=== PATIENT | male | born 1945 | race Caucasian/White ===

== ENCOUNTER 2018-04-29 18:39 | Outpatient (REF) | payer MEDICARE, SELFPAY ==
[2018-04-29 21:08] LABS: Anion Gap 7.8 mmol/L (3-11); BUN 16 mg/dL (7-18); CO2 30.2 mmol/L (21.0-32.0); CREATININE 0.84 mg/dL (0.70-1.30); Calcium 8.9 mg/dL (8.5-10.1); Chloride 95 mmol/L (98-107); Cholesterol 124 mg/dL (50-200); Glucose 97 mg/dL (70-100); HDL Cholesterol 46 mg/dL (40-60); LDL CHOLESTEROL 77 mg/dL (<100); Potassium 3.7 mmol/L (3.5-5.1); Sodium 133 mmol/L (136-145); Triglyceride 59 mg/dL (30-150)
== END 2018-04-29 18:59 ==
LOC: NCHCN 18:39
PROVIDERS: Visit Provider Nurse Practitioner
DX: I10 Essential (primary) hypertension (principal)
CPT/HCPCS: 80048; 80061; 83721

== ENCOUNTER 2019-01-05 11:13 | Outpatient (REF) | payer MEDICARE, SELFPAY ==
[2019-01-05 12:56] LABS: Anion Gap 8.5 mmol/L (3-11); BUN 16 mg/dL (7-18); CO2 30.5 mmol/L (21.0-32.0); CREATININE 0.83 mg/dL (0.70-1.30); Chloride 96 mmol/L (98-107); Glucose 100 mg/dL (70-100); Sodium 135 mmol/L (136-145)
== END 2019-01-05 11:33 ==
LOC: NCHCN 11:13
PROVIDERS: PCP Nurse Practitioner Family; Visit Provider Nurse Practitioner Family
DX: I10 Essential (primary) hypertension (principal)
CPT/HCPCS: 80048

== ENCOUNTER 2021-06-18 11:04 | Outpatient (REF) | payer MEDICARE, SELFPAY ==
[2021-06-18 14:34] LABS: ALT 30 U/L (16-63); AST 12 U/L (15-37); Anion Gap 9.8 mmol/L (3-11); BUN 18 mg/dL (7-18); CO2 30.2 mmol/L (21.0-32.0); CREATININE 0.8 mg/dL (0.70-1.30); Calcium 9.1 mg/dL (8.5-10.1); Calculated LDL 75 mg/dL (<100); Chloride 97 mmol/L (98-107); Cholesterol 130 mg/dL (<200); Glucose 97 mg/dL (74-106); HDL Cholesterol 44 mg/dL (40-60); Potassium 3.8 mmol/L (3.5-5.1); Sodium 137 mmol/L (136-145); Triglyceride 56 mg/dL (<150)
== END 2021-06-18 11:05 | disposition home or self-care (01) ==
LOC: NCHCN 11:04
PROVIDERS: PCP Nurse Practitioner Family; Visit Provider Nurse Practitioner Family
DX: E66.9 Obesity, unspecified (principal); I10 Essential (primary) hypertension
CPT/HCPCS: 80048; 80061; 84450; 84460

== ENCOUNTER 2022-05-15 16:40 | Outpatient (REF) | payer MEDICARE, SELFPAY ==
[2022-05-15 15:58] LABS: HCT 43.6 % (40.0-50.0); HGB 15.1 g/dL (13.5-17.5); MCH 30.9 pg (27.0-33.0); MCHC 34.6 % (32.0-36.0); MCV 89 fL (80-95); MPV 9.6 fL (8.0-11.0); Platelet Count 346 10^3/uL (130-400); RBC 4.88 10^6/uL (4.36-5.78); RDW 12.4 % (11.8-14.1); RDW-SD 40.8 fL; WBC 8.71 10^3/uL (4.4-10.8)
[2022-05-15 16:19] LABS: ALT 26 U/L (16-63); AST 13 U/L (15-37); Albumin 4.1 g/dL (3.4-5.0); Alkaline Phosphatase 70 U/L (46-116); Anion Gap 9.7 mmol/L (3-11); BUN 18 mg/dL (7-18); Bilirubin, Total 0.8 mg/dL (0.2-1.0); CO2 29.3 mmol/L (21.0-32.0); CREATININE 0.8 mg/dL (0.70-1.30); Calcium 9.4 mg/dL (8.5-10.1); Calculated LDL 84 mg/dL (<100); Chloride 99 mmol/L (98-107); Cholesterol 143 mg/dL (<200); Estimated GFR 92.87 (mL/min/1.73m2); Glucose 105 mg/dL (74-106); HDL Cholesterol 49 mg/dL (40-60); Potassium 4.7 mmol/L (3.5-5.1); Sodium 138 mmol/L (136-145); Triglyceride 50 mg/dL (<150)
== END 2022-05-15 16:41 | disposition home or self-care (01) ==
LOC: NCHCN 16:40
PROVIDERS: PCP Nurse Practitioner Family; Visit Provider Nurse Practitioner Family
DX: I10 Essential (primary) hypertension (principal)
CPT/HCPCS: 80053; 80061; 85027

== ENCOUNTER 2023-05-15 21:09 | Outpatient (REF) | payer MEDICARE, SELFPAY ==
[2023-05-15 19:31] LABS: Abs Immature Grans 0.03 10^3/uL (0.0-0.06); Absolute Basophil Count 0.05 10^3/uL (0.0-0.2); Absolute Eosinophil Count 0.33 10^3/uL (0.0-0.7); Absolute Lymphocyte Count 1.85 10^3/uL (1.2-3.4); Absolute Monocyte Count 0.56 10^3/uL (0.1-0.8); Absolute Neutrophil Count 5.28 10^3/uL (1.2-6.7); Basophils % 0.6; Eosinophils % 4.1; HCT 44.2 % (40.0-50.0); HGB 14.8 g/dL (13.5-17.5); Immature Grans % 0.4; Lymphocytes % 22.8; MCH 29.9 pg (27.0-33.0); MCHC 33.5 % (32.0-36.0); MCV 89 fL (80-95); MPV 9.3 fL (8.0-11.0); Monocytes % 6.9; Neutrophils % 65.2; Platelet Count 362 10^3/uL (130-400); RBC 4.95 10^6/uL (4.36-5.78); RDW 12.6 % (11.8-14.1); RDW-SD 41.4 fL
[2023-05-15 19:50] LABS: ALT 31 U/L (16-63); AST 14 U/L (15-37); Albumin 4.2 g/dL (3.4-5.0); Alkaline Phosphatase 71 U/L (46-116); Anion Gap 9.7 mmol/L (3-11); BUN 24 mg/dL (7-18); Bilirubin, Total 0.9 mg/dL (0.2-1.0); CO2 28.3 mmol/L (21.0-32.0); Calcium 9.8 mg/dL (8.5-10.1); Calculated LDL 85 mg/dL (<100); Chloride 93 mmol/L (98-107); Cholesterol 149 mg/dL (<200); Estimated GFR 78.49 (mL/min/1.73m2); Glucose 119 mg/dL (74-106); HDL Cholesterol 50 mg/dL (40-60); Potassium 4.4 mmol/L (3.5-5.1); Sodium 131 mmol/L (136-145); Total Protein 8.2 g/dL (6.4-8.2); Triglyceride 72 mg/dL (<150)
== END 2023-05-15 21:10 | disposition home or self-care (01) ==
LOC: NCHCN 21:09
PROVIDERS: PCP Nurse Practitioner Family; Visit Provider Nurse Practitioner Family
DX: I10 Essential (primary) hypertension (principal); E66.9 Obesity, unspecified
CPT/HCPCS: 80053; 80061; 85025

== ENCOUNTER 2024-06-02 17:54 | Outpatient (REF) | payer MEDICARE, SELFPAY ==
[2024-06-02 16:43] LABS: HCT 42.1 % (40.0-50.0); HGB 14.2 g/dL (13.5-17.5); MCH 30.7 pg (27.0-33.0); MCHC 33.7 % (32.0-36.0); MCV 91 fL (80-95); MPV 9.5 fL (8.0-11.0); Platelet Count 323 10^3/uL (130-400); RBC 4.63 10^6/uL (4.36-5.78); RDW 12.4 % (11.8-14.1); RDW-SD 41.2 fL; WBC 8.33 10^3/uL (4.4-10.8)
[2024-06-02 17:15] LABS: Hemoglobin A1C 5.9 % (<5.7)
[2024-06-02 17:36] LABS: ALT 28 U/L (16-63); AST 18 U/L (15-37); Alkaline Phosphatase 65 U/L (46-116); Anion Gap 9.9 mmol/L (3-11); BUN 15 mg/dL (7-18); Bilirubin, Total 0.76 mg/dL (0.2-1.0); CO2 28.1 mmol/L (21.0-32.0); CREATININE 0.9 mg/dL (0.70-1.30); Calcium 9.3 mg/dL (8.5-10.1); Calculated LDL 69 mg/dL (<100); Chloride 101 mmol/L (98-107); Cholesterol 129 mg/dL (<200); Estimated GFR 88.51 (mL/min/1.73m2); Glucose 95 mg/dL (74-106); HDL Cholesterol 46 mg/dL (40-60); Potassium 4.2 mmol/L (3.5-5.1); Sodium 139 mmol/L (136-145); Total Protein 7.6 g/dL (6.4-8.2); Triglyceride 72 mg/dL (<150)
== END 2024-06-02 17:55 | disposition home or self-care (01) ==
LOC: NCHCN 17:54
PROVIDERS: PCP Nurse Practitioner Family; Visit Provider Nurse Practitioner Family
DX: I10 Essential (primary) hypertension (principal)
CPT/HCPCS: 80053; 80061; 85027; 83036

== ENCOUNTER 2025-06-08 08:35 | Outpatient (REF) | payer MEDICARE, SELFPAY ==
[2025-06-08 14:41] LABS: HCT 40.4 % (40.0-50.0); HGB 13.9 g/dL (13.5-17.5); MCH 30.2 pg (27.0-33.0); MCHC 34.4 % (32.0-36.0); MCV 88 fL (80-95); MPV 9.0 fL (8.0-11.0); Platelet Count 384 10^3/uL (130-400); RBC 4.60 10^6/uL (4.36-5.78); RDW 12.2 % (11.8-14.1); RDW-SD 39.2 fL; WBC 8.46 10^3/uL (4.4-10.8)
[2025-06-08 15:26] LABS: ALT 24 U/L (16-63); AST 12 U/L (15-37); Albumin 3.9 g/dL (3.4-5.0); Alkaline Phosphatase 70 U/L (46-116); Anion Gap 10.4 mmol/L (3-11); BUN 31 mg/dL (7-18); Bilirubin, Total 0.7 mg/dL (0.2-1.0); CO2 27.6 mmol/L (21.0-32.0); Calcium 9.1 mg/dL (8.5-10.1); Chloride 94 mmol/L (98-107); Estimated GFR 77.52 (mL/min/1.73m2); Glucose 108 mg/dL (74-106); Potassium 4.5 mmol/L (3.5-5.1); Sodium 132 mmol/L (136-145); Total Protein 7.6 g/dL (6.4-8.2)
[2025-06-09 17:00] LABS: Hemoglobin A1C 6.0 % (<5.7)
== END 2025-06-08 08:36 | disposition home or self-care (01) ==
LOC: NCHCN 08:35
PROVIDERS: PCP Nurse Practitioner Family; Visit Provider Nurse Practitioner Family
DX: I10 Essential (primary) hypertension (principal); R73.03 Prediabetes
CPT/HCPCS: 80053; 85027; 83036